=== PATIENT | male | born 1985 | race Caucasian/White ===

== ENCOUNTER 2018-02-26 14:01 | Emergency (ER) | payer SELFPAY ==
[2018-02-26 14:48] VITALS: BP 102/69
--- NOTE | 2018-02-26 14:57 | ER Document Report ---
ED Substance Abuse / Acc. OD - General Mode of Arrival: Medic Information source: Patient TRAVEL OUTSIDE OF THE [place] IN LAST 30 DAYS: No - General Chief Complaint: Accidental Overdose Stated Complaint: OD W/ NARCAN, IVC Time Seen by Provider: 02/26/18 14:24 Notes: Patient is a 32 year old male with a history of heroin overdose presents to the emergency department for accidental overdose onset around 1330 today. According to emergency medical staff, patient was found cyanotic and unresponsive to painful stimuli by [employer] who proceeded to give 2mg of Narcan. EMS arrived to the scene and proceeded to give another 2 mg of Narcan. Patient responded well and refused to go to the emergency department and was subsequently IVCd. At bedside, patient states he has not had an accidental heroin overdose in along time and the last time he has used heroine was a few months ago. 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 Patient denies suicidal or homicidal ideation. Patient is currently taking Klonopin 1 mg 4 times daily. (STANLEY DEJESUS) - Related Data Allergies/Adverse Reactions: No Known Allergies Allergy (Verified 02/26/18 14:02) Past Medical History - General Information source: Patient - Social History Smoking Status: Never Smoker Cigarette use (# per day): No Frequency of alcohol use: Occasional Drug Abuse: Heroin Family History: Reviewed & Not Pertinent Patient has suicidal ideation: No Patient has homicidal ideation: No GI Medical History: Reports: Other - Reports inguinal hernia Psychiatric Medical History: Reports: Hx Depression Past Surgical History: Reports: Hx Appendectomy - Immunizations Hx Diphtheria, Pertussis, Tetanus Vaccination: Yes Review of Systems - Review of Systems Constitutional: See HPI EENT: No symptoms reported Cardiovascular: No symptoms reported Respiratory: No symptoms reported Gastrointestinal: No symptoms reported Genitourinary: No symptoms reported Male Genitourinary: No symptoms reported Musculoskeletal: No symptoms reported Skin: No symptoms reported Hematologic/Lymphatic: No symptoms reported Neurological/Psychological: No symptoms reported -: Yes All other systems reviewed and negative Physical Exam - General General appearance: Appears well, Alert In distress: None - HEENT Head: Normocephalic, Atraumatic Eyes: Normal Conjunctiva: Normal Extraocular movements intact: Yes Pupils: PERRL Neck: Normal - Respiratory Respiratory status: No respiratory distress Chest status: Nontender Breath sounds: Normal Chest palpation: Normal - Cardiovascular Rhythm: Regular Heart sounds: Normal auscultation Murmur: No Friction rub: No Gallop: None auscultated - Abdominal Inspection: Normal Distension: No distension Bowel sounds: Normal Tenderness: Nontender Organomegaly: No organomegaly - Back Back: Normal - Extremities General upper extremity: Normal ROM General lower extremity: Normal ROM - Neurological Neuro grossly intact: Yes Cognition: Normal Orientation: AAOx4 [place] Coma Scale Eye Opening: Spontaneous [place] Coma Scale Verbal: Oriented [place] Coma Scale Motor: Obeys Commands [place] Coma Scale Total: 15 Speech: Normal - Psychological Associated symptoms: Normal affect, Normal mood - Skin Skin Temperature: Warm Skin Moisture: Dry Skin Color: Normal - Vital signs Vitals: Temp Pulse Resp BP Pulse Ox 97.2 F 105 H 18 102/69 94 02/26/18 14:07 02/26/18 14:07 02/26/18 14:07 02/26/18 14:07 02/26/18 14:07 - Vital Signs Vital signs: Temp Pulse Resp BP Pulse Ox 97.2 F 105 H 18 102/69 94 02/26/18 14:07 02/26/18 14:07 02/26/18 14:07 02/26/18 14:07 02/26/18 14:07 Discharge - Discharge Clinical Impression: Accidental heroin overdose Qualifiers: Encounter type: initial encounter Qualified Code(s): T40.1X1A - Poisoning by heroin, accidental (unintentional), initial encounter Additional Instructions: Overdose: After your evaluation and care, it is felt that your overdose is not likely to be harmful or of any significant consequences to you and you are being discharged. Although your overdose does not seem to be of any danger to you at this time, if you develop any unusual or unexpected symptoms after your discharge, you should return to the Emergency Department immediately for re-evaluation. You were within just a few minutes of being from your overdose today. Call [facility] or [facility] if you have any interest in treatment for your substance abuse. Otherwise follow-up with your primary care provider who prescribed to your other medications. RETURN TO THE EMERGENCY ROOM IF ANY NEW OR WORSENING SYMPTOMS. Scribe Attestation: 02/26/18 15:00 I personally performed the services described in the documentation, reviewed and edited the documentation which was dictated to the scribe in my presence, and it accurately records my words and actions. (CHING ANTONY) Scribe Documentation - Scribe Written by Osiel:: Osiel Wong, 02/26/2018 15:10 acting as scribe for :: Michael
== END 2018-02-26 15:15 | disposition home or self-care (01) ==
LOC: ER 14:01
DX: T40.1X1A Poisoning by heroin, accidental (unintentional), initial encounter (principal)
CPT/HCPCS: 99284

== ENCOUNTER 2018-12-02 12:29 | Emergency (ER) | payer SELFPAY ==
[2018-12-02 12:41] VITALS: BP 124/77
--- NOTE | 2018-12-02 13:51 | ER Document Report ---
ED Medical Screen (RME) - General Chief Complaint: Medication Refill Stated Complaint: RX REFILL Time Seen by Provider: 12/02/18 13:28 Notes: Patient is a 33-year-old male who presents the emergency department with an inquiry of for a medication refill. States that he has been out of his Klonopin for the past 3 days. States that he is unable to function without it. He states he has not had any sleep and has felt nauseous ever since he ran out of his Klonopin medication. He does not know the dose of how much Klonopin he takes. He states he is unable to see mental health until next month. He has history of an overdose and was seen multiple times here in the emergency department. Patient denies any suicidal or homicidal ideation at this time. Denies shortness of breath, difficulty breathing, headache, chest pain, or other symptoms. Patient states he has not slept in 3 days. Past medical history includes multiple overdoses, anxiety, TRAVEL OUTSIDE OF THE [place] IN LAST 30 DAYS: No - Related Data Allergies/Adverse Reactions: No Known Allergies Allergy (Verified 12/02/18 12:34) Past Medical History Renal/ Medical History: Denies: Hx Peritoneal Dialysis Psychiatric Medical History: Reports: Hx Depression Past Surgical History: Reports: Hx Appendectomy - Immunizations Hx Diphtheria, Pertussis, Tetanus Vaccination: Yes Review of Systems - Review of Systems Notes: REVIEW OF SYSTEMS: CONSTITUTIONAL : Denies recent illness. Denies recent unintentional weight loss. Denies fever, chills, or sweats. EENT: Denies eye, ear, throat, or mouth pain, discharge, or symptoms. Denies nasal or sinus congestion. CARDIOVASCULAR: Denies chest pain. RESPIRATORY: Denies shortness of breath, cough, congestion, difficulty breathing, or wheezing. GASTROINTESTINAL: See HPI GENITOURINARY: Denies difficulty urinating, burning, blood in urine, urgency or frequency. MUSCULOSKELETAL: Denies neck and back pain. Denies joint pain or swelling. SKIN: Denies rash, itchiness, or lesions HEMATOLOGIC : Denies easy bruising or bleeding. LYMPHATIC: Denies swollen, painful, enlarged glands. NEUROLOGICAL: Denies no numbness or tingling denies weakness. Denies headache. Denies altered mental status. Denies alteration in speech. PSYCHIATRIC: See HPI. All other systems reviewed and negative. Physical Exam - Vital signs Vitals: Temp Pulse Resp BP Pulse Ox 98.5 F 101 H 16 124/77 97 12/02/18 12:40 12/02/18 12:40 12/02/18 12:40 12/02/18 12:40 12/02/18 12:40 - Notes Notes: PHYSICAL EXAMINATION: GENERAL: Appears well, healthy, well-nourished, no acute distress. HEAD: Normocephalic, atraumatic. EYES: PERRLA NECK: Normal inspection EXTREMITIES: Normal range of motion. NEUROLOGICAL: Moves all extremities upon command. PSYCH: Anxious. SKIN: Warm, dry. Course - Re-evaluation Re-evalutation: I have offered for the patient to see behavioral health, and the patient is refusing to see behavioral health to have his medication evaluated. I told him that I will not refill his Klonopin. He became upset and stated that he wanted to leave AGAINST MEDICAL ADVICE. Patient is nontoxic in appearance. Vital signs are stable. He states that he would like to just go see another clinic. 12/02/18 13:59 The patient has chosen to leave the facility against medical advice. The relevant issues have been reviewed and discussed with the patient and family at the bedside. At the time of this assessment there is no indication for involuntary commitment. The patient is alert, oriented, and able to express clearly their reasoning for not wanting to remain in the emergency department for further treatment. The patient is not clinically psychotic, intoxicated, and denies and suicidal ideation. Differential or suspected diagnoses based on medical screening exam: Medication refill, Anxiety The patient is aware of the concerning diagnoses and acknowledges understanding of the reasons for the following recommendations: Anxiety, Suicidal or Homicidal ideation The following recommendations/services were offered and refused: Offered the patient to speak with behavioral health, but the patient refused. The following risks were explained: , permanent disability, loss of function, suicidal or homicidal ideation. Clinical impression: Patient is competent to make decisions regarding the medical that is being offered. - Vital Signs Vital signs: Temp Pulse Resp BP Pulse Ox 98.5 F 101 H 16 124/77 97 12/02/18 12:40 12/02/18 12:40 12/02/18 12:40 12/02/18 12:40 12/02/18 12:40 Doctor's Discharge - Discharge Clinical Impression: Medication refill, Left against medical advice Condition: Stable Disposition: AGAINST MEDICAL ADVICE Additional Instructions: You were seen today in the emergency department for medication refill. You were offered to be evaluated by mental health to have your medication refilled, but you are deciding to leave AGAINST MEDICAL ADVICE. There is a possibility you could , have suicidal thoughts, or do irrational things. We would like you to be safe. If you feel like you are a danger to yourself or others, please return to the emergency department so you can receive proper care.
== END 2018-12-02 13:59 | disposition left against medical advice (07) ==
LOC: ER 12:29
DX: Z76.0 Encounter for issue of repeat prescription (principal); R11.0 Nausea; Z53.29 Procedure and treatment not carried out because of patient's decision for other reasons
CPT/HCPCS: 99281

== ENCOUNTER 2019-02-02 10:36 | Emergency (ER) | payer OTHER ==
[2019-02-02 11:13] VITALS: BP 103/79
[2019-02-02] MEDS ORDERED: KETOROLAC TROMETHAMINE 60 MG/2 ML SDV IM ONE (11:36)
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
[2019-02-02] MEDS ORDERED: HYDROCODONE/ACETAMINOPHEN 5-325 MG (6 TAB/ER DISP) PO SCH (12:30)
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
== END 2019-02-02 12:39 | disposition home or self-care (01) ==
LOC: ER 10:36
DX: S42.025A Nondisplaced fracture of shaft of left clavicle, initial encounter for closed fracture (principal); V49.9XXA Car occupant (driver) (passenger) injured in unspecified traffic accident, initial encounter
CPT/HCPCS: 99283; 96372; 73000; J1885

== ENCOUNTER 2019-04-13 15:44 | Emergency (ER) | payer SELFPAY ==
[2019-04-13 16:56] LABS: APPEARANCE,URINE SLIGHTLY-CLOUDY; BILIRUBIN,URINE NEGATIVE (NEGATIVE); COLOR,URINE YELLOW; GLUCOSE, URINE NEGATIVE (NEGATIVE); KETONES,URINE NEGATIVE (NEGATIVE); LEUKOCYTE ESTERASE,URINE NEGATIVE (NEGATIVE); NITRITE,URINE NEGATIVE (NEGATIVE); PROTEIN,URINE 30 mg/dL (NEGATIVE); UROBILINOGEN,URINE NEGATIVE mg/dL (<2.0)
[2019-04-13 17:08] LABS: URINE AMPHETAMINES SCREEN NEGATIVE; URINE BARBITURATES SCREEN NEGATIVE; URINE BENZODIAZEPINES SCREEN UNCONFIRMED POSITIVE; URINE COCAINE SCREEN NEGATIVE; URINE MARIJUANA (THC) SCREEN NEGATIVE; URINE METHADONE SCREEN NEGATIVE; URINE PHENCYCLIDINE SCREEN NEGATIVE
--- NOTE | 2019-04-13 17:20 | ER Document Report ---
ED General - General Chief Complaint: Possible Overdose Stated Complaint: IVC Time Seen by Provider: 04/13/19 15:56 TRAVEL OUTSIDE OF THE [place] IN LAST 30 DAYS: No - HPI Notes: Patient is a 34-year-old male that presents to the emergency department for chief complaint of heroin overdose. Patient reports history of intermittent heroin use over the last few years. He has also been on methadone occasionally. He states he been clean off of heroin for the last month and then relapsed today. He did inject heroin. He states that previously he would snort and inject depending on the day. He denies any coingestion of alcohol or other drugs. Police were called after patient overdosed today and when they were on scene patient was Narcan but continued to not make much sense. The police did a video conference call with Dr. Nelson who reported that he still appeared intoxicated and seemed to have impaired judgment therefore IVC paperwork was filled out. Currently patient is very alert and oriented with no signs of intoxication. He has no complaints. He denies suicidal ideations or homicidal ideations. He states that he uses heroin to get high and was not trying to escape anything. He denies any excessive stresses in his life currently. Patient is requesting to be discharged. Past Medical History: Anxiety Past Surgical History: Negative Social History: History of heroin abuse, denies alcohol abuse. Denies tobacco use Family History: Reviewed and noncontributory for presenting illness Allergies: Reviewed, see documented allergy list. REVIEW OF SYSTEMS: CONSTITUTIONAL : No fever No chills No diaphoresis No recent illness EENT: No vision changes No congestion No sore throat CARDIOVASCULAR: No chest pain No palpitations RESPIRATORY: No shortness of breath No cough No difficulty breathing GASTROINTESTINAL: No abdominal pain No nausea No vomiting No diarrhea GENITOURINARY: No dysuria No hematuria No difficulty urinating MUSCULOSKELETAL: No back pain No leg pain No arm pain SKIN: No rashes No lesions LYMPHATIC: No swollen, enlarged glands. NEUROLOGICAL: No lightheadedness No headache No weakness No paresthesias PSYCHIATRIC: No anxiety No depression PHYSICAL EXAMINATION: Vital signs reviewed, nursing noted reviewed. GENERAL: Well-appearing, well-nourished and in no acute distress. HEAD: Atraumatic, normocephalic. EYES: Eyes appear normal, extraocular movements intact, sclera anicteric, conjunctiva are normal. ENT: nares patent, oropharynx clear without exudates. Moist mucous membranes. NECK: Normal range of motion, supple without lymphadenopathy LUNGS: Breath sounds clear to auscultation bilaterally and equal. No wheezes rales or rhonchi. HEART: Tachycardic rate and regular rhythm without murmurs ABDOMEN: Soft, nontender, normoactive bowel sounds. No rebound, guarding, or rigidity. No masses appreciated. EXTREMITIES: Nontender, good range of motion, no pitting or edema. NEUROLOGICAL: No focal neurological deficits. Moves all extremities spontaneously Motor and sensory grossly intact on exam. PSYCH: Anxious mood, normal affect. SKIN: Warm, Dry, normal turgor, no rashes or lesions noted on exposed skin - Related Data Allergies/Adverse Reactions: No Known Allergies Allergy (Verified 04/13/19 15:49) Past Medical History - Social History Smoking Status: Current Every Day Smoker Drug Abuse: Heroin Family History: Reviewed & Not Pertinent Patient has suicidal ideation: No Patient has homicidal ideation: No Renal/ Medical History: Denies: Hx Peritoneal Dialysis Psychiatric Medical History: Reports: Hx Depression Past Surgical History: Reports: Hx Appendectomy - Immunizations Hx Diphtheria, Pertussis, Tetanus Vaccination: Yes Physical Exam - Vital signs Vitals: Temp Pulse Resp BP Pulse Ox 98.0 F 129 H 18 122/79 94 04/13/19 15:50 04/13/19 15:50 04/13/19 15:50 04/13/19 15:50 04/13/19 15:50 Course - Re-evaluation Re-evalutation: 04/13/19 17:17 Vitals reviewed. Nursing notes reviewed. Patient is alert and oriented. He has no focal neurologic deficits and is able to ambulate in the room without difficulty or ataxia. He does not clinically appear intoxicated and has clear judgment. At this point I feel patient does have capacity to make his own medical decisions. He is not currently meeting IVC criteria. He was IVC'd because he was appearing intoxicated but has since received Narcan. [facility] administers 5 mg intranasal Narcan. [facility] reported patient was breathing and moving but was unresponsive. They did not report cyanosis. Patient is not actively suicidal or homicidal. He does not have a desire to continue using opiates and will be given references for follow-up for his drug abuse. I did discuss his care with our psych team and they agree that if patient is alert and oriented he is stable for discharge and outpatient substance abuse counseling. I did recommend that the patient stay in the emergency room for 3 hours after receiving Narcan to be monitored which patient has declined. He understands the risks of Narcan wearing off prior to the heroin and risk of becoming unconscious again. At this point patient has capacity to make his own medical decisions and will sign out AGAINST MEDICAL ADVICE. - Vital Signs Vital signs: Temp Pulse Resp BP Pulse Ox 98.0 F 129 H 18 122/79 94 04/13/19 15:50 04/13/19 15:50 04/13/19 15:50 04/13/19 15:50 04/13/19 15:50 - Laboratory Laboratory results interpreted by me: 04/13/19 16:22 Urine Protein 30 H Urine Blood SMALL H Discharge - Discharge Clinical Impression: Heroin overdose Qualifiers: Encounter type: initial encounter Injury intent: accidental or unintentional Qualified Code(s): T40.1X1A - Poisoning by heroin, accidental (unintentional), initial encounter Condition: Stable Disposition: AGAINST MEDICAL ADVICE Instructions: Overdose ([facility]) Additional Instructions: It was advised that you be monitored in the emergency room for 3 hours after receiving Narcan. The Narcan can wear out of your system before the heroin does and you may become unresponsive again. If this occurs and you do not receive treatment you may suffer permanent brain damage or . You have been given resources for outpatient substance abuse counseling which I encourage you to follow-up with. Return to the emergency room for any new or worsening symptoms Do not hesitate to call the emergency room for any questions
[2019-04-13 19:23] VITALS: BP 150/93
== END 2019-04-13 17:45 | disposition left against medical advice (07) ==
LOC: ER 15:44
DX: T40.1X1A Poisoning by heroin, accidental (unintentional), initial encounter (principal); X58.XXXA Exposure to other specified factors, initial encounter; F17.200 Nicotine dependence, unspecified, uncomplicated
CPT/HCPCS: 80307; 81001; 99284

== ENCOUNTER 2019-05-11 18:13 | Emergency (ER) | payer SELFPAY ==
--- NOTE | 2019-05-11 18:24 | ER Document Report ---
ED General - General Stated Complaint: POSSIBLE OVERDOSE Time Seen by Provider: 05/11/19 18:18 Mode of Arrival: Medic Information source: Patient TRAVEL OUTSIDE OF THE [place] IN LAST 30 DAYS: No - HPI Onset: Just prior to arrival - EMS found pt. unresponsive with heroin and syringes/needles next to him -- they administered intranasal and IV narcan and pt. awoke and became somewhat combative. They transported him here for further evaluation. - Related Data Allergies/Adverse Reactions: No Known Allergies Allergy (Verified 04/13/19 15:49) Past Medical History - General Information source: Patient - Social History Smoking Status: Unknown if Ever Smoked Drug Abuse: Heroin Family History: Reviewed & Not Pertinent Renal/ Medical History: Denies: Hx Peritoneal Dialysis Psychiatric Medical History: Reports: Hx Depression Past Surgical History: Reports: Hx Appendectomy - Immunizations Hx Diphtheria, Pertussis, Tetanus Vaccination: Yes Review of Systems - Review of Systems Constitutional: No symptoms reported EENT: No symptoms reported Cardiovascular: No symptoms reported Respiratory: No symptoms reported Gastrointestinal: No symptoms reported Musculoskeletal: No symptoms reported Neurological/Psychological: No symptoms reported Physical Exam - General General appearance: Appears well In distress: None - Respiratory Respiratory status: No respiratory distress Breath sounds: Normal - Cardiovascular Rhythm: Regular Heart sounds: Normal auscultation Murmur: No - Extremities General upper extremity: Normal inspection General lower extremity: Normal inspection - Neurological Neuro grossly intact: Yes Cognition: Normal Orientation: AAOx4 Speech: Normal Motor strength normal: LUE, RUE, LLE, RLE Course - Re-evaluation Re-evalutation: 05/11/19 18:22 pt. refused w/u and any sort of testing . He also refused help for his drug problem and will sign out AMA Discharge - Discharge Clinical Impression: Drug overdose Qualifiers: Encounter type: initial encounter Injury intent: undetermined intent Qualified Code(s): T50.904A - Poisoning by unspecified drugs, medicaments and biological substances, undetermined, initial encounter Condition: Stable Disposition: HOME, SELF-CARE Additional Instructions: rest, avoid illegal drugs, return if worse Referrals: SWATI BRANDT MD [ACTIVE STAFF] - Follow up as needed
== END 2019-05-11 18:25 | disposition home or self-care (01) ==
LOC: ER 18:13
DX: T50.904A Poisoning by unspecified drugs, medicaments and biological substances, undetermined, initial encounter (principal); T40.1X1A Poisoning by heroin, accidental (unintentional), initial encounter
CPT/HCPCS: 99285

== ENCOUNTER 2019-07-12 16:24 | Emergency (ER) | payer SELFPAY ==
[2019-07-12] MEDS ORDERED: NORMAL SALINE 1000 ML 1,000 ML IV ONE (16:33)
[2019-07-12 17:27] VITALS: BP 115/64
[2019-07-12 17:29] LABS: ABSOLUTE BASOPHILS # (AUTO) 0.1 10^3/uL (0.0-0.2); ABSOLUTE EOSINOPHILS # (AUTO) 0.5 10^3/uL (0.0-0.6); ABSOLUTE LYMPHOCYTES (AUTO) 1.8 10^3/uL (0.5-4.7); ABSOLUTE MONOCYTES (AUTO) 0.8 10^3/uL (0.1-1.4); BASOPHILS % (AUTO) 0.9 % (0-2); RED CELL DISTRIBUTION WIDTH 14.4 % (11.5-14.0); TOTAL CELLS COUNTED % (AUTO) 100 %
[2019-07-12 17:50] LABS: ACETAMINOPHEN < 10 ug/mL (10-30); ALBUMIN 4.4 g/dL (3.5-5.0); ALCOHOL < 10 mg/dL (NONE DETECTED); ALKALINE PHOSPHATASE 67 U/L (38-126); ANION GAP 9 (5-19); ASPARTATE AMINO TRANSFERASE 131 U/L (17-59); BILIRUBIN,DIRECT 0.2 mg/dL (0.0-0.4); BILIRUBIN,TOTAL 0.6 mg/dL (0.2-1.3); BLOOD UREA NITROGEN 14 mg/dL (7-20); CALCIUM 9.4 mg/dL (8.4-10.2); CARBON DIOXIDE 33 mmol/L (22-30); CHLORIDE 98 mmol/L (98-107); GLUCOSE 100 mg/dL (75-110); POTASSIUM 3.7 mmol/L (3.6-5.0); SALICYLATE < 1.0 mg/dL (2.0-20.0); TOTAL PROTEIN 7.1 g/dL (6.3-8.2)
[2019-07-12 17:52] LABS: ABSOLUTE NEUT (AUTO) 4.4 10^3/uL (1.7-8.2); EOSINOPHILS % (AUTO) 6.1 % (0-6); HEMOGLOBIN 13.1 g/dL (13.5-17.0); LYMPHOCYTES % (AUTO) 23.9 % (13-45); MEAN CORPUSCULAR HEMOGLOBIN 30.3 pg (27.0-33.4); MEAN CORPUSCULAR HGB CONC 34.4 g/dL (32.0-36.0); MEAN CORPUSCULAR VOLUME 88 fl (80-97); MONOCYTES % (AUTO) 10.9 % (3-13); PLATELET COUNT 258 10^3/uL (150-450); RED BLOOD COUNT 4.31 10^6/uL (4.35-5.55); SEGMENTED NEUTROPHILS % (AUTO) 58.2 % (42-78); WHITE BLOOD COUNT 7.5 10^3/uL (4.0-10.5)
--- NOTE | 2019-07-13 12:12 | EKG REPORT ---
SEVERITY:- OTHERWISE NORMAL ECG - SINUS TACHYCARDIA : Confirmed by: Kathie Vazquez 13-Jul-2019 12:10:54
--- NOTE | 2019-07-16 08:13 | ER Document Report ---
Entered by GIAN AQUINO SCRIBE 07/12/19 [facility] Acting as scribe for:TENNILLE ROWLAND IV, MD ED Substance Abuse / Acc. OD - General Chief Complaint: Possible Overdose Stated Complaint: POSSIBLE OVERDOSE Time Seen by Provider: 07/12/19 16:32 Primary Care Provider: MARTINE LR MD [HONORARY] - 07/16/19 Mode of Arrival: Ambulatory Information source: Patient Notes: This 34-year-old male patient presents to the emergency department as a medical alert that was called overhead here at this facility. Patient was found to be in a locked bathroom stall by the radiation oncology department with a needle in his arm, along with a belt being used as a tourniquet. According to the responding staff, the patient appeared to be under the influence of some sort of medication, somewhat altered. Initially the patient denies taking anything, on ly mentioning that he has been addicted to lorazepam in the past, stating that he has not had any lorazepam recently. The patient's father does show up to the room approximately 20 minutes after the patient arrives. Father states that the patient's mother is critically ill in the ICU and he was here visiting her. Father states that the patient had left to go to the cafeteria to buy some food and on his way back they crossed paths in the hallway. Father states that the patient handed him the food he had purchased and told him that he had to go to the bathroom. Father reports that after about an hour of not seeing the patient, he began looking for him in the hospital. Father states he found the patient in the bathroom in the above mentioned position. Father does mention that the patient has an extensive history of drug abuse. Eventually after about an hour anastasia the patient does cooperate and admits to injecting heroin as well as crushing up opioid pain medications and injecting them as well. Patient states that he wishes to sign out AGAINST MEDICAL ADVICE today and he was strongly advised against this. Patient was thoroughly informed of the risks associated with him signing out AGAINST MEDICAL ADVICE including . Patient was able to recite back all potential consequences of his decision to sign out AGAINST MEDICAL ADVICE and he understands these risks but wishes to s ign out anyways. Pertinent PMHx/PSHx: Extensive history of drug abuse including heroin and prescription drugs - additional PMHx/PSHx not pertinent to this visit as recorded. TRAVEL OUTSIDE OF THE [place] IN LAST 30 DAYS: No - Related Data Allergies/Adverse Reactions: No Known Allergies Allergy (Verified 04/13/19 15:49) Past Medical History - General Information source: Patient, Parent, H Records Cannot obtain history due to: Altered mental status - Social History Smoking Status: Current Every Day Smoker Cigarette use (# per day): Yes Drug Abuse: Heroin, Prescription drugs Family History: Reviewed & Not Pertinent Psychiatric Medical History: Reports: Hx Depression Past Surgical History: Reports: Hx Appendectomy - Immunizations Hx Diphtheria, Pertussis, Tetanus Vaccination: Yes Review of Systems - Review of Systems -: Yes ROS unobtainable due to patient's medical condition Physical Exam - Vital signs Vitals: Resp Pulse Ox 11 L 92 07/12/19 16:28 07/12/19 16:28 - Notes Notes: Physical Exam: General: Brought into room 18 via wheelchair. HEENT: Normocephalic. Atraumatic. PERRL. Extraocular movements intact. Oropharynx clear. Conjunctiva are injected bilaterally. Neck: Supple. Non-tender. Respiratory: No respiratory distress. Clear and equal breath sounds bilaterally. Cardiovascular: Regular rate and rhythm. Abdominal: Normal Inspection. Non-tender. No distension. Normal Bowel Sounds. Back: No gross abnormalities. Extremities: Moves all four extremities. Upper extremities: Normal inspection. Normal ROM. Lower extremities: Normal inspection. No edema. Normal ROM. Neurological: Normal cognition. AAOx4. Speech is slow and deliberate, but does speak in complete sentences. GCS of 15. Psychological: Normal affect. Normal Mood. Adamantly denies suicidal ideation or that this was a suicidal attempt. Skin: Warm. Dry. Normal color. Course - Re-evaluation Re-evalutation: 07/12/19 16:30 Poison control was called, they recommend a 6-hour period of observation. 07/12/19 18:01 Patient states that he wants to leave at this time. This MD spoke with poison control at 1630 hrs., they recommended a 6-hour observation. Patient does not want to stay for 6 hours. Risks of leaving AGAINST MEDICAL ADVICE discussed with the patient at length. Risks were explained to the patient and include but are not limited to permanent disability, loss of current quality of life, and/or . The patient's father was standing outside the room and asked if there was any way that he could be "kept for a while." Given that the patient denies suicidal ideation, homicidal intent, this MD explained to the father that taking out involuntary commitment papers under the circumstances would be difficult. However this MD did encourage the father to go to the trust operations assistant himself and take out involuntary commitment papers if he is that concerned about the patient's potential for self-harm and harm to others. The father stated "that will take 3 weeks." The father then changed his mind and told this MD that the patient can do whatever he wants. The father then she took this MDs and and expressed appreciation of the care that we provided to the patient while he was in the emergency department. At time of discharge, patient was able to state his full name, the day of the week, the date including month day and year, the fact that it was Thanksgiving, and the name of the president. - Vital Signs Vital signs: Temp Pulse Resp BP Pulse Ox 97.7 F 12 115/64 94 07/12/19 17:23 07/12/19 17:17 07/12/19 17:17 07/12/19 17:17 - Laboratory Result Diagrams: 07/12/19 17:18 07/12/19 17:18 Laboratory results interpreted by me: 07/12/19 07/12/19 17:18 17:18 RBC 4.31 L Hgb 13.1 L RDW 14.4 H Eos % (Auto) 6.1 H Carbon Dioxide 33 H Creatinine 1.34 H AST 131 H Salicylates < 1.0 L Acetaminophen < 10 L - EKG Interpretation by Me Additional EKG results interpreted by me: 07/12/19 16:58 EKG performed on 07/12/2019 at 1647 hrs. was reviewed by this MD. Findings: Sinus tachycardia, rate of 100, normal axis, P waves proceed QRS complexes, ST segments to not show a specific pattern of ischemia, infarction or other acute injury. Impression sinus tachycardia with nonspecific ST segments. Discharge - Discharge Clinical Impression: Polysubstance abuse Condition: Fair Disposition: AGAINST MEDICAL ADVICE Instructions: Narcotic Abuse ([facility]) Additional Instructions: Return to the Emergency Department without delay if any worse. HOME CARE INSTRUCTIONS & INFORMATION: Thank you for choosing us for your medical needs. We hope you're satisfied with the care you received. After you leave, you must properly care for your problem and, at the same time, observe its progress. Any condition can change. Some illnesses can change rapidly over hours or days. If your condition worsens, return to the Emergency Department or see your physician promptly. ABOUT YOUR X-RAYS AND EKG'S: If you had an EKG or X-rays taken, they have been read by the Emergency Physician. The X-rays and EKG's will also be read by a Radiologist or Lead Game Designer within 24 hours. If discrepancies are noted, you will be notified by telephone. Please be certain the ED has a correct telephone number & address where you can be reached. Also, realize that some fractures or abnormalities do not show up on initial X-rays. If your symptoms continue, see your physician. ABOUT YOUR LABORATORY TEST: If you had laboratory tests, the results have been reviewed by the Emergency Physician. Some test results (for example cultures) may not be available for several days. You will be contacted if any test result shows you need additional treatment. Please be certain the ED has a correct telephone number and address where you can be reached. ABOUT YOUR MEDICATIONS: You will receive instructions on how to take your medicine on the prescription label you receive. Additional information may be provided by the Pharmacy. If you have questions afterwards, call the ED for clarification or further instructions. Some prescribed medications may cause drowsiness. Do not perform tasks such as driving a car or operating machinery without consulting your Pharmacist. If you feel you need a refill of pain medication, your condition will need re-evaluation. Please do not call for a refill of any medication. ABOUT YOUR SIGNATURE: Signature of this document acknowledges to followin. Understanding that you received emergency treatment and that you may be released before al medical problems are known or treated. Please be certain the ED has a correct phone number & address where you can be reached. 2. Acknowledgement that you will arrange for follow-up care as recommended. 3. Authorization for the Emergency Physician to provide information to your follow-up Physician in order to maximize your care. AT ANY TIME, IF YOUR SYMPTOMS CHANGE SIGNIFICANTLY OR WORSEN OR YOU DEVELOP NEW SYMPTOMS, RETURN TO THE EMERGENCY DEPARTMENT IMMEDIATELY FOR RE-EVALUATION. OUR GOAL IS TO PROVIDE EXCELLENT MEDICAL CARE! WE HOPE THAT WE HAVE MET YOUR EXPECTATIONS DURING YOUR EMERGENCY DEPARTMENT VISIT AND THAT YOU FEEL YOU HAVE RECEIVED EXCELLENT CARE! Referrals: MARTINE LR MD [HONORARY] - 07/16/19 I personally performed the services described in the documentation, reviewed and edited the documentation which was dictated to the scribe in my presence, and i t accurately records my words and actions.
== END 2019-07-12 18:07 | disposition left against medical advice (07) ==
LOC: ER 16:24
DX: F11.10 Opioid abuse, uncomplicated (principal); F19.10 Other psychoactive substance abuse, uncomplicated; R00.0 Tachycardia, unspecified; F17.210 Nicotine dependence, cigarettes, uncomplicated; R41.82 Altered mental status, unspecified; Z53.20 Procedure and treatment not carried out because of patient's decision for unspecified reasons
CPT/HCPCS: 93005; 99284; 36415; 80307 ×3; 85025; 80053; 93010; J7030

== ENCOUNTER 2020-06-09 14:50 | Emergency (ER) | payer SELFPAY ==
[2020-06-09] MEDS ORDERED: LIDOCAINE 1% INJ-PF (10 MG/ML) 30 ML SDV INJ ONE (15:53)
[2020-06-09] MEDS ORDERED: DIPH/PERTUSS(ACELL)/TETANUS VAC/PF 0.5 ML SYR (>=10YO) IM ONE ×2 (15:53→18:15)
--- NOTE | 2020-06-09 15:56 | ER Document Report ---
HPI - HPI Patient complains to provider of: Arm laceration Time Seen by Provider: 06/09/20 15:53 Onset: Just prior to arrival Onset/Duration: Sudden Quality of pain: Achy Pain Level: 2 Context: Patient states he was moving furniture and pushed the couch up against the mirror. Patient states the mirror broke and fell cutting his right arm. Patient uncertain when last tetanus immunization was. No active bleeding at this time. Associated Symptoms: Other - Arm laceration Exacerbated by: Movement Relieved by: Denies Similar symptoms previously: No Recently seen / treated by doctor: No - ROS ROS below otherwise negative: Yes Systems Reviewed and Negative: Yes All other systems reviewed and negative - NEURO Neurology: DENIES: Weakness - GASTROINTESTINAL Gastrointestinal: DENIES: Nausea - MUSCULOSKELETAL Musculoskeletal: REPORTS: Extremity pain - DERM Skin Color: Normal Skin Problems: Laceration Past Medical History - General Information source: Patient - Social History Smoking Status: Current Every Day Smoker Frequency of alcohol use: None Drug Abuse: None Occupation: None Lives with: Family Family History: Reviewed & Not Pertinent Renal/ Medical History: Denies: Hx Peritoneal Dialysis Psychiatric Medical History: Reports: Hx Depression Past Surgical History: Reports: Hx Appendectomy - Immunizations Hx Diphtheria, Pertussis, Tetanus Vaccination: Yes Vertical Provider Document - CONSTITUTIONAL Agree With Documented VS: Yes Exam Limitations: No Limitations General Appearance: WD/WN, No Apparent Distress - INFECTION CONTROL TRAVEL OUTSIDE OF THE [place] IN LAST 30 DAYS: No - HEENT HEENT: Atraumatic, Normocephalic - NECK Neck: Normal Inspection - RESPIRATORY Respiratory: Breath Sounds Normal, No Respiratory Distress - CARDIOVASCULAR Cardiovascular: Regular Rate, Regular Rhythm Pulses: Normal: Radial - BACK Back: Normal Inspection - MUSCULOSKELETAL/EXTREMETIES Musculoskeletal/Extremeties: MAEW, FROM - NEURO Level of Consciousness: Awake, Alert, Appropriate Motor/Sensory: No Motor Deficit - DERM Integumentary: Warm, Dry, Laceration - 2 cm laceration to distal right humerus, no active bleeding Course - Vital Signs Vital signs: Temp Pulse Resp BP Pulse Ox 97.3 F 98 20 115/79 97 06/09/20 15:32 06/09/20 15:32 06/09/20 15:32 06/09/20 15:32 06/09/20 15:32 - Diagnostic Test Radiology reviewed: Image reviewed, Reports reviewed Procedures - Laceration/Wound Repair Right Arm Wound length (cm): 2 Wound's Depth, Shape: Linear Laceration pre-procedure: Shur-Clens applied Anesthetic type: 1% Lidocaine Wound explored: Clean Wound Repaired With: Sutures Suture Size/Type: 4:0, Nylon Number of Sutures: 3 Post-procedure wound care: Sterile dressing applied Post-procedure NV exam normal: Yes Complications: No Adult Front & Back picture: 1 - lac Discharge - Discharge Clinical Impression: Laceration of right upper arm Qualifiers: Encounter type: initial encounter Qualified Code(s): S41.111A - Laceration without foreign body of right upper arm, initial encounter Condition: Stable Disposition: HOME, SELF-CARE Instructions: Laceration Care ([facility]), Tetanus Immunization Given ([facility]) Additional Instructions: Return immediately for any new or worsening symptoms Followup with your primary care provider, call tomorrow to make a followup appointment Suture removal in 10 days Follow-up with orthopedics for any persistent pain or problems Referrals: [facility] [Provider Group] - Follow up as needed
--- NOTE | 2020-06-09 16:42 | RADIOLOGY REPORT (SQ) ---
EXAM DESCRIPTION: HUMERUS RIGHT IMAGES COMPLETED DATE/TIME: 06/09/2020 4:35 pm REASON FOR STUDY: lac, ?FB COMPARISON: None. NUMBER OF VIEWS: Two views. TECHNIQUE: Two radiographic images were acquired of the right humerus to include elbow and shoulder in at least one projection. LIMITATIONS: None. FINDINGS: MINERALIZATION: Normal. BONES: No acute fracture or dislocation. No worrisome bone lesions. SOFT TISSUES: No obvious swelling or foreign body. OTHER: No other significant finding. IMPRESSION: NEGATIVE STUDY OF THE RIGHT HUMERUS. NO RADIOGRAPHIC EVIDENCE OF ACUTE INJURY. TECHNICAL DOCUMENTATION: JOB ID: [id number] [employer]- All Rights Reserved Reading location - IP/workstation name: [email or web address]
[2020-06-09] MEDS ORDERED: LIDOCAINE 1% INJ-PF (10 MG/ML) 30 ML SDV ONE (17:56)
[2020-06-09 18:47] VITALS: BP 105/82
== END 2020-06-09 18:46 | disposition home or self-care (01) ==
LOC: ER 14:50
DX: S41.111A Laceration without foreign body of right upper arm, initial encounter (principal); W26.8XXA Contact with other sharp object(s), not elsewhere classified, initial encounter; Y93.89 Activity, other specified; F17.200 Nicotine dependence, unspecified, uncomplicated; Z23 Encounter for immunization
CPT/HCPCS: 99284; 96372; 73060; 90715; 12001; J3490